=== PATIENT | male | born 1980 | race Caucasian/White ===

== ENCOUNTER 2016-09-24 09:24 | Emergency (ER) | payer OTHER ==
[2016-09-24 09:27] VITALS: RESP 18; TEMP 98.6
--- NOTE | 2016-09-24 09:34 | ED PDOC ---
HPI: Eye Injury/Pain Time Seen by Provider: 09/24/16 09:25 Chief Complaint (Nursing): Eye Problem Chief Complaint (Provider): R eye swelling, FB sensation History Per: Patient History/Exam Limitations: no limitations Onset/Duration Of Symptoms: Sudden Onset Current Symptoms Are (Timing): Still Present Severity: Mild Quality: Sharp Wears Contact Lens?: No Associated Symptoms: Pain, Swelling, FB Sensation, Itching. denies: Decreased Vision, Discharge From Eye Additional Complaint(s): 36yo male employee [employer] was working overnight at [facility] [place], [place] friday where he felt something get into his eye while working, over course of next day became red and lateral lid became swollen, red and painful. Hes been using warm compresses on it several times a day yesterday w some improvement. He denies changes in vision, fever or headache. Past Medical History Reviewed: Historical Data, Nursing Documentation, Vital Signs Vital Signs: Last Vital Signs Temp 98.6 F 09/24/16 09:25 Pulse 76 09/24/16 09:25 Resp 18 09/24/16 09:25 BP 171/107 H 09/24/16 09:25 Pulse Ox 99 09/24/16 09:25 - Medical History PMH: HTN - Family History Family History: States: Unknown Family Hx - Social History Current smoker - smoking cessation education provided: Yes - Immunization History Hx Influenza Vaccination: Yes - Allergies Allergies/Adverse Reactions: Allergies Allergy/AdvReac Type Severity Reaction Status Date / Time No Known Allergies Allergy Verified 09/24/16 09:25 Review of Systems Constitutional: Negative for: Fever, Chills Eyes: Positive for: Pain, Conjunctivae Inflammation, Eyelid Inflammation, Redness. Negative for: Vision Change ENT: Negative for: Ear Pain Cardiovascular: Negative for: Chest Pain Gastrointestinal: Negative for: Abdominal Pain Neurological: Negative for: Headache, Dizziness Physical Exam - Reviewed Nursing Documentation Reviewed: Yes Vital Signs Reviewed: Yes - Physical Exam Appears: Positive for: Well, Non-toxic Head Exam: Positive for: ATRAUMATIC Skin: Positive for: Normal Color, Warm, Dry Eye Exam: Positive for: Other (R eye lateral lid w stye and early blepharitis, mild periorbital edema/erythema, nontender globe; fluoroscein stain no uptake; cornea quiet and EOMI, MAC. ) - ECG O2 Sat by Pulse Oximetry: 99 Medical Decision Making Medical Decision Making: R eye flushed 50cc sterile saline. Will start gentamicin opth ointment and Rx augmentin [id number] if symptoms worsen. Warm compress continue. If not better in 24hrs, ophtho consultation outpatient. Also educated on elevated BP, currently asymptomatic. Takes lisinopril, unsure of dose, but needs salt restriction and stricter BP control. Disposition - Clinical Impression Clinical Impression: Blepharitis of eyelid of right eye - Patient ED Disposition Is Patient to be Admitted: No Counseled Patient/Family Regarding: Studies Performed, Diagnosis, Need For Followup, Rx Given - Disposition Disposition: Routine/Home Disposition Time: 09:38 Condition: STABLE Additional Instructions: See eye doctor tomorrow if symptoms persist. Start oral antibiotic later today if symptoms of redness or swelling worsen. Return to ER for any change in symptoms- fever, pain, swelling, change in vision or any concern. Get blood pressure checked via your private doctor and recommend strict adherence to blood pressure medications. Instructions: Blepharitis (ED)
[2016-09-24] MEDS ORDERED: Gentamicin Sulfate Ophth OINT OD STA (09:40)
[2016-09-24 10:52] VITALS: BP 156/112; PULSE 87; O2SAT 98
== END 2016-09-24 10:54 | disposition home or self-care (01) ==
LOC: H.ER 09:24
DX: H01.02 Squamous blepharitis (principal)